=== PATIENT | male | born 1975 | race Caucasian/White ===

== ENCOUNTER 2022-10-01 11:48 | Emergency (ER) | payer OTHER, SELFPAY ==
[2022-10-01 12:12] VITALS: BP 173/81; PULSE 83; RESP 18; TEMP 36.9; O2SAT 92; BMI 59.5
--- NOTE | 2022-10-01 13:12 | ED.GENADULT ---
HPI - General Adult General Time Seen by Provider: 13:12 Date Seen: 10/01/22 Chief complaint: Cough Stated complaint: Cough Time Seen by Provider: 10/01/22 11:49 Source: patient and RN notes reviewed Mode of arrival: ambulatory Limitations: no limitations History of Present Illness HPI narrative: Patient is a 46-year-old male coming to the ER with maybe about 3-4 week history of cough. He states that started after doing a sleep study. He was found to have sleep apnea but states there has been a delay in getting the machine. He states he had 110 events or something of that nature on the sleep study. He started with a dry cough, no fevers. It is started to become productive. Again no fevers or night sweats. Denies any chest pain. Times feels wheezy and short of breath. Has chronic edema of his lower extremities, is not feeling worse. Denies any prior diagnosis of cardiac or respiratory illnesses, is not aware of any history asthma. He does not smoke. He is on no medications. Denies any chest pain with this. Related Data Home Medications Medication Instructions Recorded Confirmed No Known Home Medications 10/01/22 10/01/22 Allergies Allergy/AdvReac Type Severity Reaction Status Date / Time No Known Drug Allergies Allergy Verified 10/01/22 12:15 Review of Systems Status of ROS: Reports: 6 or more systems reviewed and unremarkable except as noted in History and below PFSH PFS Social History Smoking Status: Never smoker Do you use any of these nicotine containing products: None How often do you have a drink containing alcohol: never AUDIT-C Alcohol total score: 0 Non-prescribed substance use: denies use Exam Const: Vital Signs, click to edit/add: Vital Signs - 24 hr 10/01/22 12:12 10/01/22 16:13 Temperature 98.5 F 97.2 F L Pulse Rate [Right Pulse Oximeter] 83 79 Respiratory Rate 18 16 Blood Pressure [Ri ght Upper Arm] 173/81 H 126/70 Pulse Oximetry 92 95 Oxygen Delivery Me thod Room Air Room Air Documenting provider has reviewed patient's vital signs: yes Common normals: no apparent distress, oriented x3, no limitations, alert and well nourished General appearance: cooperative, comfortable, well kempt and well developed Nutritional appearance: obese HENMT: Common normals: normocephalic, head/scalp atraumatic and hearing grossly normal bilaterally Head and scalp: normocephalic and atraumatic Face and sinus: normal facial exam Eye: Common normals: PERRL, EOMs intact bilaterally, conjunctivae normal and no scleral icterus Conjunctiva: conjunctiva(e) normal Pupil: PERRL Neck & C-Spine: Common normals: full ROM, no lymphadenopathy and supple Other: Thick neck, do not appreciate any underlying masses. Difficult to assess jugular venous distension. Lymph: Lymphatic: no lymphadenopathy noted Chest: Common normals: inspection of chest normal and palpation of chest normal Resp: Common normals: normal respiratory effort, no retractions and no use of accessory muscles Effort & inspection: able to speak in complete sentences Other: On his right side do here some rhonchi, diminished breath sounds. There is maybe a sense of a very end expiratory scattered wheeze. Cardio: Common normals: regular rate, regular rhythm, S1 normal heart sound, S2 normal heart sound, no gallops, no clicks and no murmurs Rate: regular rate Rhythm: regular rhythm Heart sounds: S1 normal and S2 normal GI: Other: Abdomen is obese, he has no tenderness, body habitus precludes any good assessment of any hepatosplenomegaly or masses. Extremity: Other: Extremely thickened lower extremities bilaterally without any skin changes. Patient does not seem to have any tenderness. Neuro: Common normals: oriented x3 Sensorium/orientation: alert Psych: Appearance: well kempt Course Course Hospital Course: Patient has had a progressive cough over 3-4 weeks. Certainly this could be infectious, inflammatory, potentially even cardiac in nature. Will have him get a two view chest x-ray to start, full complement of labs, will have him on pulse oximetry for monitoring while here. Reevaluation(s) Time of Reevaluation #1: 15:32 Reevaluation #1: Have reviewed with patient that his D-dimer is just mildly elevated and he does have an abnormal chest x-ray. His white blood count and procalcitonin are normal. He is 502 lb and cannot go in our CT scanner due to weight limitations. Have reviewed with him his abnormal chest x-ray with mildly abnormal D-dimer, really would recommend proceeding with chest CT PE protocol to rule out thromboembolic disease as well as better identify lung parenchyma. We are calling to see if other facilities have capacity or ability for bariatric patients. Did discuss with him if we cannot find a bariatric CT, could consider V/Q scan for looking at thromboembolic phenomenon. However, if he has an underlying parenchyma problem that we can see on chest x-ray, I feel there is a high likelihood that we will get an indeterminate scan. Time of Reevaluation #2: 15:58 Reevaluation #2: Have reviewed with patient that I a conversed with his primary care provider. He really thinks that he should proceed with getting the CT imaging done. Have reviewed with patient that I will talk to [facility] to see if we can get a CT PE protocol arranged there. Patient states he wants to go home, does not want to do this. I have reviewed with him that pulmonary emboli, underlying respiratory infections certainly can be lethal if untreated. He states he will sign whatever I want him to sign but he wants to go home. I had ordered a venous ultrasound in the interim to see if there was any clot burden in his legs potentially while we were figuring out the imaging issue. He states that he will at least have that done here but then wants to go home. Consultations Consultation #1: Have spoken with his primary care provider Dr. Shetty at [facility]. Have reviewed the situation, labs, imaging results. He states that this patient has put off a lot and if we do not get him to go now, that it will not likely happen. He recommends that we do send him to [place] [facility] to get the CT imaging of his chest. He states this patient historically does not follow through. I will make sure the patient is aware that Dr. Shetty supports us getting the CT imaging done. Time: 15:55 Vital Signs Vital signs: Initial Vital Signs Temperature 98.5 F 10/01/22 12:12 Temperature Source Temporal Artery Scan 10/01/22 12:12 Pulse Rate 83 10/01/22 12:12 Respiratory Rate 18 10/01/22 12:12 Blood Pressure 173/81 H 10/01/22 12:12 Blood Pressure Mean 111 H 10/01/22 12:12 Blood Pressure Position Sitting 10/01/22 12:12 Pulse Oximetry 92 10/01/22 12:12 Oxygen Delivery Method Room Air 10/01/22 12:12 Vital Signs Temperature 98.5 F 10/01/22 12:12 Pulse Rate 83 10/01/22 12:12 Respiratory Rate 18 10/01/22 12:12 Blood Pressure 173/81 H 10/01/22 12:12 Pulse Oximetry 92 10/01/22 12:12 Oxygen Delivery Method Room Air 10/01/22 12:12 Temperature 97.2 F L 10/01/22 16:13 Pulse Rate 79 10/01/22 16:13 Respiratory Rate 16 10/01/22 16:13 Blood Pressure 126/70 10/01/22 16:13 Pulse Oximetry 95 10/01/22 16:13 Oxygen Delivery Method Room Air 10/01/22 16:13 Medical Decision Making Lab Data Lab results reviewed: Yes I reviewed the patient's lab results Labs: Lab Results 10/01/22 10/01/22 Range/Units 13:26 13:53 WBC 9.18 (4.50-11.00) K/uL RBC 5.18 (4.30-5.90) m/uL Hgb 15.1 (13.5-17.5) gm/dL Hct 47.6 (37.0-53.0) % MCV 92 (80-100) fL MCH 29 (26-34) pg MCHC 32 (32-36) gm/dL RDW Coeff of Jimmy 14.0 (11.5-15.5) % Plt Count 279 (140-440) K/uL Neut % (Auto) 68.7 (42.0-72.0) % Lymph % (Auto) 21.2 (20-44) % [place] % (Auto) 6.4 (0.0-11.0) % Eos % (Auto) 2.7 (0.0-7.0) % Baso % (Auto) 0.3 (0.0-3.0) % Neut # (Auto) 6.30 (1.7-7.0) K/uL Lymph # (Auto) 1.95 (0.90-2.90) K/uL [place] # (Auto) 0.60 (0.00-0.90) K/UL Eos # (Auto) 0.25 (0.00-0.50) K/uL Baso # (Auto) 0.03 (0.00-0.30) K/uL Abs Immat Gran (auto) 0.06 (0.00-0.30) K/uL Imm/Tot Granulo (auto) 0.7 % D-Dimer Quant (PE/DVT) 0.58 H (0.00-0.50) ug/ml VBG pH 7.419 (7.32-7.43) VBG pCO2 48 (40-50) mmHG VBG pO2 37.2 (25-47) mmHG VBG HCO3 31 H (21-28) mmol/L Sodium 141 (135-149) mmol/L Potassium 3.8 (3.6-5.1) mmol/L Chloride 103 (96-114) mmol/L Carbon Dioxide 30 (20-32) mmol/L BUN 14 (5-24) mg/dL Creatinine 0.8 (0.5-1.5) mg/dL Estimated Creat Clear 143.86 Estimated GFR 110 ml/min Glucose 120 H (60-115) mg/dL Lactate 1.0 (0.5-1.9) mmol/L Calcium 9.0 (8.4-10.6) mg/dL Total Bilirubin 0.8 (0.1-1.5) mg/dL AST 31 (12-35) U/L ALT 40 (4-50) U/L Alkaline Phosphatase 88 (40-150) U/L C-Reactive Protein 1.2 H (0.5-1.0) mg/dL NT-Pro-B Natriuret Pep < 20 pg/mL Total Protein 8.0 (6.0-8.3) g/dL Albumin 4.1 (3.3-5.0) g/dL Procalcitonin 0.07 (<0.50) ng/mL POC Troponin I 0.00 L (0.01-0.04) ng/ml Imaging Data Chest x-ray: Attestation: I have reviewed the pertinent imaging results. My impression: Do question right-sided infiltrate, will await Radiology over-read. Radiologist's impression: Patient: CHRISTOPHER DOMINGUEZ Facility:?[facility] Patient ID:?[id number] Site Patient ID:?[id number]. Site :?[id number] Study:?XRay Chest PA & LAT-10/01/2022 1:46:42 PM Ordering Physician:?PaulineCutler I[place] Final Report: INDICATION: Cough. TECHNIQUE: Chest 2 views. COMPARISON: None. FINDINGS: Cardiovascular and mediastinum: Heart size and vasculature are normal in caliber and appearance. Lungs and pleural spaces: Low lung volumes. Patchy bibasilar consolidation. No sign of infiltrate or mass. No sign of pleural effusion. No pneumothorax. Bones and soft tissues: No significant findings. IMPRESSION: Patchy bibasilar consolidation, possibly atelectasis or aspiration. Dictated by Sherman Power MD @ 10/01/2022 2:24:04 PM (Electronic Signature) Venous US: Attestation: I have reviewed the pertinent imaging results. My impression: Preliminary report per the tar roofer is negative for DVT. Radiologist's impression: Patient: CHRISTOPHER DOMINGUEZ Facility:?[facility] Patient ID:?[id number] Site Patient ID:?[id number]. Site :?[id number] Study:?US Extremity Bilateral LEV BILATERAL-10/01/2022 4:45:54 PM Ordering Physician:Kai Monson Final Report: INDICATION: Leg pain and swelling. TECHNIQUE: Ultrasound venous duplex bilateral lower extremity. Compression venous exam was performed using schmidt-scale, color Doppler, and spectral Doppler analysis. COMPARISON: None. FINDINGS: Limited evaluation due to patient body habitus. Deep veins: Sonographic imaging demonstrates the bilateral common femoral, deep femoral, superficial femoral, popliteal, and posterior tibial veins to be fully compressible with normal color Doppler blood flow. Superficial veins: Greater saphenous veins are fully compressible. No popliteal cyst. IMPRESSION: Limited evaluation due to patient body habitus. Within the limitations, no DVT in the bilateral lower extremities Dictated by Cass Valencia MD @ 10/01/2022 5:32:51 PM (Electronic Signature) Discharge Plan Discharge Clinical Impression: Cough, Abnormal chest x-ray, D-dimer, elevated Patient Disposition: Left Against Medical Advice Condition: Stable Instructions: Acute Cough (ED) Additional Instructions: Follow-up with Dr. Shetty in [place] as soon as possible, preferably within the next couple days. It is possible that you might be aspirating causing the coughing. It is recommended that you have a CT PE protocol completed at some point in the very near future. Dr. Shetty can potentially have that arranged at the [facility] or [facility]. These are the 2 facilities that I am aware of that have bariatric capacity. A reflux study may need to be done to differentiate aspiration as a possibility. Again, Dr. Shetty can help advise you on this. You really should try to treat your obstructive sleep apnea. There many long-term health complications from untreated sleep apnea. Activity Level: Activity as Tolerated Prescriptions: No Action No Known Home Medications Follow Up/Referrals: Provider,Not a Local [Primary Care Provider] - Stand Alone Forms: [employer] Info Instructions
--- NOTE | 2022-10-01 13:26 | CRLHL7_ITS ---
For Patients: As a result of the Century Cures Act, medical imaging exams and procedure reports are released immediately into your electronic medical record. You may view this report before your referring provider. If you have questions, please contact your health care provider. INDICATION: Cough. TECHNIQUE: Chest 2 views. COMPARISON: None. FINDINGS: Cardiovascular and mediastinum: Heart size and vasculature are normal in caliber and appearance. Lungs and pleural spaces: Low lung volumes. Patchy bibasilar consolidation. No sign of infiltrate or mass. No sign of pleural effusion. No pneumothorax. Bones and soft tissues: No significant findings. IMPRESSION: Patchy bibasilar consolidation, possibly atelectasis or aspiration. Dictated by Sherman oPwer MD @ 10/01/2022 2:24:04 PM (Electronically Signed)
[2022-10-01 13:59] LABS: HCO3 VBG 31 mmol/L (21-28); PCO2 VBG 48 mmHG (40-50); PO2 VBG 37.2 mmHG (25-47); pH VBG 7.419 (7.32-7.43)
[2022-10-01 14:02] LABS: Basophils Absolute Auto 0.03 K/uL (0.00-0.30); Basophils Percent Auto 0.3 % (0.0-3.0); Eosinophils Absolute Auto 0.25 K/uL (0.00-0.50); Eosinophils Percent Auto 2.7 % (0.0-7.0); Hematocrit 47.6 % (37.0-53.0); Hemoglobin* 15.1 gm/dL (13.5-17.5); Immature Granulocytes Abs Auto 0.06 K/uL (0.00-0.30); Immature Granulocytes Pct Auto 0.7 %; Lymphocytes Absolute Auto 1.95 K/uL (0.90-2.90); Lymphocytes Percent Auto 21.2 % (20-44); Mean Corpuscular HGB Conc 32 gm/dL (32-36); Mean Corpuscular Hemoglobin 29 pg (26-34); Mean Corpuscular Volume 92 fL (80-100); Monocytes Percent Auto 6.4 % (0.0-11.0); Neutrophils Percent Auto 68.7 % (42.0-72.0); Platelet Count* 279 K/uL (140-440); Red Blood Count 5.18 m/uL (4.30-5.90); White Blood Count* 9.18 K/uL (4.50-11.00)
[2022-10-01 14:13] LABS: Slide Review Reflex No
[2022-10-01 14:15] LABS: Chloride* 103 mmol/L (96-114)
[2022-10-01 14:16] LABS: Albumin* 4.1 g/dL (3.3-5.0); Potassium* 3.8 mmol/L (3.6-5.1); Sodium* 141 mmol/L (135-149)
[2022-10-01 14:18] LABS: Carbon Dioxide* 30 mmol/L (20-32); Creatinine* 0.8 mg/dL (0.5-1.5); Est. Creatinine Clearance* 143.86; Estimated Glomerular Filt Rate 110 ml/min
[2022-10-01 14:19] LABS: Alanine Aminotransferase* 40 U/L (4-50); Alkaline Phosphatase* 88 U/L (40-150); Aspartate Amino Transferase* 31 U/L (12-35); Bilirubin Total* 0.8 mg/dL (0.1-1.5); Blood Urea Nitrogen* 14 mg/dL (5-24); Glucose* 120 mg/dL (60-115)
[2022-10-01 14:22] LABS: C Reactive Protein* 1.2 mg/dL (0.5-1.0)
[2022-10-01 14:28] LABS: D Dimer Quantitative* 0.58 ug/ml (0.00-0.50)
[2022-10-01 14:35] LABS: Procalcitonin* 0.07 ng/mL (<0.50)
[2022-10-01 14:37] LABS: NT Pro B Type NatriureticPept* < 20 pg/mL
--- NOTE | 2022-10-01 15:49 | CRLHL7_ITS ---
For Patients: As a result of the Century Cures Act, medical imaging exams and procedure reports are released immediately into your electronic medical record. You may view this report before your referring provider. If you have questions, please contact your health care provider. INDICATION: Leg pain and swelling. TECHNIQUE: Ultrasound venous duplex bilateral lower extremity. Compression venous exam was performed using schmidt-scale, color Doppler, and spectral Doppler analysis. COMPARISON: None. FINDINGS: Limited evaluation due to patient body habitus. Deep veins: Sonographic imaging demonstrates the bilateral common femoral, deep femoral, superficial femoral, popliteal, and posterior tibial veins to be fully compressible with normal color Doppler blood flow. Superficial veins: Greater saphenous veins are fully compressible. No popliteal cyst. IMPRESSION: Limited evaluation due to patient body habitus. Within the limitations, no DVT in the bilateral lower extremities Dictated by Cass Valencia MD @ 10/01/2022 5:32:51 PM (Electronically Signed)
[2022-10-01 16:13] VITALS: BP 126/70; PULSE 79; RESP 16; TEMP 36.2; O2SAT 95
--- NOTE | 2022-10-01 16:14 | ED.NURSE ---
Options explored with outside healthcare organizations about CT imaging options. See provider note for details. Patient plans to leave [place] rather than go up to [facility] for imaging at this time.
== END 2022-10-01 16:46 | disposition left against medical advice (07) ==
PROVIDERS: Emergency Provider Family Medicine
DX: R91.8 Other nonspecific abnormal finding of lung field (principal); R05.9 Cough, unspecified; R79.89 Other specified abnormal findings of blood chemistry; Z53.29 Procedure and treatment not carried out because of patient's decision for other reasons
CPT/HCPCS: 36415; 71046; 80053; 82803; 83605; 83880; 84145; 84484; 85025; 85379; 86140; 93970; 99284